=== PATIENT | female | born 1950 | race Caucasian/White ===

== ENCOUNTER 2017-12-21 16:56 | Emergency (ER) | payer BC ==
[~2017-12-21] VITALS: Ht 167.6 cm; Wt 51.4 kg
[2017-12-21 16:57] VITALS: BP 174/78; PULSE 95; RESP 14; TEMP 98.8; O2SAT 98
--- NOTE | 2017-12-21 17:15 | PD ---
HPI Chief Complaint: Injury Time Seen by Provider: 17:07 Travel History International Travel<30 days: No Contact w/Intl Traveler<30days: No Traveled to known affect area: No History of Present Illness HPI 67-year-old female presents to emergency department complaining of continued left knee pain after tripping and falling on Tuesday while walking her dog. Denies hitting her head or loss of consciousness. Denies neck pain or back pain. Denies paresthesias, loss of sensation, decreased range of motion, motor strength to the affected extremity. Chest pain, shortness of breath, abdominal pain, nausea, vomiting, fevers. Has been ambulatory on the affected extremity. Says there was significant swelling and bruising to the left knee and she has iced it a lot in the last few days. Has not taken any medications to alleviate her symptoms. Pain is worse with walking. Better at rest. Symptoms are mild in severity. History of anxiety. Primary care provider is in another state. Allergic to iodinated contrast. Has no other medical complaints. No other modifying factors or associated signs and symptoms. [facility] Social History Tobacco Use: No Allergies-Medications (Allergen,Severity, Reaction): Coded Allergies: Iodinated Contrast- Oral and IV Dye (Verified Allergy, Unknown, 12/21/17) Reported Meds & Prescriptions Reported Meds & Active Scripts Active Reported Vitamin D-1000 (Cholecalciferol) 1,000 Unit Tab 1,000 Units PO DAILY Review of Systems Except as stated in HPI: all other systems reviewed are Neg Physical Exam Narrative GENERAL: Well-nourished, well-developed female patient, in no acute distress; afebrile, nontoxic-appearing SKIN: Warm and dry. HEAD: Atraumatic. Normocephalic. EYES: Pupils equal and round. No scleral icterus. No injection or drainage. ENT: Mucosa pink and moist. Airway patent. NECK: Trachea midline. CARDIOVASCULAR: Regular rate. RESPIRATORY: No accessory muscle use. GASTROINTESTINAL: Flat. MUSCULOSKELETAL: Left knee with minimal edema and with ecchymosis noted to the lateral aspect; scabbed abrasion noted without signs of infection; left knee is non-erythematous; full range of motion and flexion to 90; point tenderness to the patellar aspect; joint stable with negative drawer test; no obvious deformity. Left Lower extremity is supple and non-tense with 2+ pedal pulse and sensory intact and without erythema or edema. Ambulatory in the room with a normal gait. NEUROLOGICAL: Awake and alert. Oriented 3. No obvious cranial nerve deficits. Motor grossly within normal limits. Normal speech. PSYCHIATRIC: Appropriate mood and affect; insight and judgment normal. Data Data Last Documented VS Vital Signs Date Time Temp Pulse Resp B/P (MAP) Pulse Ox O2 Delivery O2 Flow Rate FiO2 12/21/17 16:57 98.8 95 14 174/78 (110) 98 Orders Orders Knee, Complete (4vws) (12/21/17 17:13) Ed Discharge Order (12/21/17 17:53) Canvas Knee Splint (Cks) (12/21/17 ) Crutches (12/21/17 17:53) MDM Medical Decision Making Medical Screen Exam Complete: Yes Emergency Medical Condition: Yes Medical Record Reviewed: Yes Differential Diagnosis Patellar fracture, contusion, injury, sprain Narrative Course 67-year-old female with left knee injury after mechanical fall on Tuesday. Denies hitting her head or loss of consciousness. Denies neck pain or back pain. I offered patient pain medication and she declined. Left knee x-ray ordered. 1748: Left knee x-ray concludes: Knee X-Ray 12/21/17 1713 Signed Impressions: Service Date/Time: Thursday, December 21, 2017 17:27 - CONCLUSION: Nondisplaced small patella fracture.. Stef Best MD FACR Patient provided a copy of the x-ray report. Canvas knee splint and crutches provided for support. The patient follow-up with orthopedics. The patient does not want a prescription for pain medication for home. Prescription for a walker provided to the patient. Instructed patient to follow up with primary care provider. Patient verbalizes understanding and agreement with treatment plan. Patient is medically cleared and stable for discharge. Discussed reasons to return to the emergency department. Patient agrees with treatment plan. The patients vital signs are stable and the patient is stable for outpatient follow-up and treatment. Patient discharged home, stable and in no acute distress. Diagnosis Primary Impression: Left patella fracture Qualified Codes: S82.002A - Unspecified fracture of left patella, initial encounter for closed fracture Referrals: Orthopaedic Surgeon Primary Care Physician Patient Instructions: Crutch Instructions (ED), General Instructions, Patellar Fracture (ED) Additional Instructions: Tylenol or ibuprofen as needed and as directed to reduce pain and inflammation Rest, ice, compress, and elevate extremity to decrease pain and inflammation Knee brace for support Crutches for support Avoid aggravating activity; increase activity as tolerated Follow-up with primary care provider Follow-up with orthopedics Return to the emergency department immediately with worsening symptoms Med/Other Pt SpecificInfo: Prescription(s) given Scripts Walker/Adult/Folding (Walker/Adult/Folding) 1 Mis Mis EA .ROUTE DIRECTED, #1 0 Refills Prov: Sarah Gilmore 12/21/17 Disposition: 01 DISCHARGE HOME Condition: Stable Sarah Gilmore Dec 21, 2017 17:15
--- NOTE | 2017-12-21 17:45 | RADRPT ---
EXAM DATE/TIME: 12/21/2017 17:27 [facility] COMPARISON: No previous studies available for comparison. INDICATIONS : Left knee pain post fall Tuesday. MEDICAL HISTORY : None. SURGICAL HISTORY : None. ENCOUNTER: Initial ACUITY: 1 day PAIN SCORE: 5/10 LOCATION: Left knee. FINDINGS: Nondisplaced fracture of the inferior lateral portion of the patella. No other fractures are appreci ated. CONCLUSION: Nondisplaced small patella fracture.. Stef Best MD FACR on December 21, 2017 at 17:42 Board Certified Radiologist. This report was verified electronically.
[2017-12-21] MEDS ORDERED: VITA1000 PO (17:53)
[2017-12-21] MEDS ORDERED: WALKER/ADULT/FO1 MIS (18:01)
== END 2017-12-21 18:46 | disposition home or self-care (01) ==
LOC: NEPK 16:56
DX: S82.002A Unspecified fracture of left patella, initial encounter for closed fracture (principal); R11.2 Nausea with vomiting, unspecified; R06.02 Shortness of breath; F41.9 Anxiety disorder, unspecified; W01.0XXA Fall on same level from slipping, tripping and stumbling without subsequent striking against object, initial encounter; Y93.K1 Activity, walking an animal
CPT/HCPCS: 73564; 99283; E0113; L1830

== ENCOUNTER 2018-02-19 18:39 | Inpatient (IN) | payer OTHER, MEDICARE ==
[~2018-02-19] VITALS: Ht 167.6 cm; Wt 53.0 kg
[~2018-02-19 18:39] MED LIST: VITA1000 PO; WALKER/ADULT/FO1 MIS
[2018-02-19 18:48] VITALS: BP 162/86; PULSE 117; RESP 18; TEMP 97.8; O2SAT 100
[2018-02-19] MEDS ORDERED: GING500C (19:31)
[2018-02-19] MEDS ORDERED: ACETAMINOPHEN/HYDROcodone 325 MG/5 MG TAB PO ONE ×2 (19:45→23:00)
[2018-02-19] MEDS ORDERED: ONDANSETRON ODT 4 MG TAB PO ONE (19:45)
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
[2018-02-19 20:10] VITALS: RESP 16; O2SAT 98
[2018-02-19 20:44] LABS: AUTOMATED NEUTROPHIL # 5.4 TH/MM3 (1.8-7.7); BASOPHIL % 0.5 % (0.0-2.0); EOSINOPHIL # 0.1 TH/MM3 (0-0.4); EOSINOPHIL % 1.3 % (0.0-4.0); HEMOGLOBIN 13.7 GM/DL (11.6-15.3); LYMPH % 22.3 % (9.0-44.0); LYMPHOCYTE # 1.7 TH/MM3 (1.0-4.8); MEAN CELL VOLUME 89.9 FL (80.0-100.0); MEAN CORPUSCULAR HEMOGLOBIN 30.1 PG (27.0-34.0); MEAN CORPUSCULAR HGB CONC 33.5 % (32.0-36.0); MEAN PLATELET VOLUME 9.1 FL (7.0-11.0); MONO % 6.3 % (0.0-8.0); MONOCYTE # 0.5 TH/MM3 (0-0.9); NEUT % 69.6 % (16.0-70.0); PLATELET COUNT 252 TH/MM3 (150-450); RED BLOOD COUNT 4.56 MIL/MM3 (4.00-5.30); RED CELL DISTRIBUTION WIDTH 13.8 % (11.6-17.2); WHITE BLOOD COUNT 7.8 TH/MM3 (4.0-11.0)
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
[2018-02-19 21:01] LABS: PROTHROMBIN TIME - PATIENT 10.2 SEC (9.8-11.6)
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
[2018-02-19] MEDS ORDERED: ROBA500T PO (21:28)
[2018-02-19] MEDS ORDERED: IBUP-232 PO (21:28)
[2018-02-19 22:14] LABS: ALBUMIN 3.6 GM/DL (3.4-5.0); AST (GOT) 22 U/L (15-37); BICARBONATE 29.6 MEQ/L (21.0-32.0); BLOOD UREA NITROGEN 29 MG/DL (7-18); CALCIUM 8.8 MG/DL (8.5-10.1); CHLORIDE 105 MEQ/L (98-107); GLOMERULAR FILTRATION RATE 62 ML/MIN (>89); GLUCOSE,RANDOM 117 MG/DL (74-106); SODIUM (NA) 142 MEQ/L (136-145)
[2018-02-19 22:15] LABS: ALT (GPT) 22 U/L (10-53)
[2018-02-19 22:18] LABS: ALKALINE PHOSPHATASE 100 U/L (45-117); TOTAL BILIRUBIN ADULT 0.3 MG/DL (0.2-1.0)
[2018-02-19] MEDS ORDERED: ZOLPIDEM TARTRATE 5 MG TAB PO PRN (23:00)
[2018-02-20 00:10] VITALS: BP 138/87; PULSE 80; RESP 19; TEMP 96.2; O2SAT 100
[2018-02-20] MEDS ORDERED: MAGNESIUM HYDROXIDE SUSP 30 ML CUP PO PRN (02:45)
[2018-02-20] MEDS ORDERED: ENALAPRILAT 1.25 MG/ML VIAL IV PUSH PRN (02:45)
[2018-02-20] MEDS ORDERED: ACETAMINOPHEN/HYDROcodone 325 MG/5 MG TAB PO PRN (02:45)
[2018-02-20] MEDS ORDERED: SODIUM CHLORIDE 0.9% FLUSH 10 ML FLUSH IV FLUSH PRN (02:45)
[2018-02-20] MEDS ORDERED: MORPHINE SULFATE 2 MG/ML INJ IV PRN (02:45)
[2018-02-20] MEDS: SODIUM CHLOR 0.9% 1000 ML INJ 1,000 ML IV SCH ×2 (03:23→12:29)
[2018-02-20] MEDS: ACETAMINOPHEN/HYDROcodone 325 MG/5 MG TAB PO PRN ×3 (03:24→08:29)
[2018-02-20 04:00] VITALS: BP 189/99; PULSE 76; PULSE 88; RESP 19; TEMP 96.1; O2SAT 99
[2018-02-20] MEDS ORDERED: PANTOPRAZOLE SODIUM 40 MG VIAL IVP SCH (06:00)
[2018-02-20 07:37] VITALS: PULSE 73
[2018-02-20 08:03] VITALS: BP 108/60; PULSE 73; RESP 18; TEMP 98.5; O2SAT 100
[2018-02-20] MEDS: ONDANSETRON HCL 4 MG/2 ML VIAL IV PUSH PRN ×2 (08:51→15:14)
[2018-02-20 12:14] VITALS: BP 104/59; PULSE 70; RESP 18; TEMP 97.6; O2SAT 95
[2018-02-20] MEDS ORDERED: MAGN30S PO (12:53)
[2018-02-20] MEDS ORDERED: REGL10TA5 PO (12:58)
[2018-02-20] MEDS ORDERED: METOCLOPRAMIDE HCL 10 MG/2 ML VIAL IV PUSH PRN (14:00)
[2018-02-20] MEDS ORDERED: KETOROLAC TROMETHAMINE 30 MG/ML (IVP) VIAL IV PUSH SCH (14:00)
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
[2018-02-20 15:59] VITALS: BP 149/95; PULSE 66; RESP 18; TEMP 98.1; O2SAT 99
[2018-02-20] MEDS ORDERED: ZOFR4TAB PO (16:22)
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
== END 2018-02-20 18:02 | disposition home or self-care (01) | DRG 605 ==
LOC: NEPE 18:39 → NEDH 22:47 → NEPHCDU 23:31 → OBSVTOIN 02-20 02:36
PROVIDERS: ADMIT Surgery; ATTEND Surgery
DX: S20.219A Contusion of unspecified front wall of thorax, initial encounter (principal); F41.9 Anxiety disorder, unspecified; S69.92XA Unspecified injury of left wrist, hand and finger(s), initial encounter; S40.211A Abrasion of right shoulder, initial encounter; V22.4XXA Motorcycle driver injured in collision with two- or three-wheeled motor vehicle in traffic accident, initial encounter; Y92.410 Unspecified street and highway as the place of occurrence of the external cause; Z91.041 Radiographic dye allergy status
CPT/HCPCS: 71045; 71250; 73030; 73110; 73560; 80053; 85025; 85610; 85730; C9113; G0378; J1885; J2405; J2765; J7030